=== PATIENT | male | born 1970 | race Caucasian/White ===

== ENCOUNTER 2022-05-01 13:42 | Emergency (ER) | payer OTHER, SELFPAY ==
--- NOTE | ~2022-05-01 | XR_ITS ---
EXAMINATION: XR SHOULDER, LEFT CLINICAL INFORMATION: Reduction COMPARISON: Left shoulder performed earlier at 1:53 PM TECHNIQUE: AP external rotation, Grashey, scapular Y, and axillary views of the left shoulder. FINDINGS: There are 2 images obtained of left shoulder. The first image postreduction shows no reduction of the shoulder dislocation. The second image shows reduction of anterior dislocation of the left shoulder with a nondisplaced fracture along the greater tuberosity. There is minimal soft tissue swelling is seen. The AC joint is normal. XR/XR shoulder LT min 2V IMPRESSION: The second image is post reduction with normal glenohumeral alignment. There is a small fracture along the greater tuberosity. Minimal soft tissue swelling is seen.
--- NOTE | ~2022-05-01 | XR_ITS ---
EXAMINATION: XR SHOULDER, LEFT CLINICAL INFORMATION: Fall COMPARISON: None TECHNIQUE: 2 views of the left shoulder. FINDINGS: There is anterior inferior dislocation of the humeral head with respect to the glenoid. No fracture is seen. The acromioclavicular joint is normal. Soft tissues are normal XR/XR shoulder LT min 2V IMPRESSION: Left shoulder dislocation.
[2022-05-01 13:45] VITALS: BP 164/106; PULSE 95; RESP 19; TEMP 36.6; O2SAT 98; BMI 33.0
--- NOTE | 2022-05-01 13:55 | ED.EXTPRO ---
HPI - Extremity Problem General Chief complaint: Extremity Injury, Upper Stated complaint: shoulder dislocated Time Seen by Provider: 05/01/22 13:55 Source: patient and family () Mode of arrival: ambulatory Limitations: no limitations History of Present Illness HPI Narrative: Patient is a 51 year old male presenting to the emergency department today with left shoulder pain after a fall. Patient states that he fell off of an 8 foot ladder and landed with his left shoulder upwards and he believes it is dislocated. Patient denies hitting his head with the incident. Patient denies any loss of consciousness from the incident. Patient denies any dizziness, lightheadedness, abdominal pain, nausea, vomiting, fever, chills, blurry vision, double vision, loss of vision, chest pain, difficulty breathing, shortness of breath, back pain, night sweats, pain with urination, increased urinary frequency, increased urinary urgency, blood in his urine or stool, syncope or a near syncopal episode, bowel incontinence, bladder incontinence, bowel retention, bladder retention, or any other complaints at this time. MD Complaint: extremity pain Onset (ago): minute(s) Pain Consistency: constant Location: left and upper extremity Severity scale (1-10): 4 Quality: aching and dull Radiation: none Relieving factors: nothing Exacerbating factors: range of motion Associated symptoms: denies other symptoms Related Data Allergies Allergy/AdvReac Type Severity Reaction Status Date / Time No Known Allergies Allergy Unverified 07/08/20 17:48 Review of Systems Constitutional: Constitutional: Reports no additional constitutional complaints, Denies chills, Denies fever(s) and Denies night sweats Eyes: Eyes: Reports no additional eye complaints, Denies blurry vision, Denies change in vision, Denies diplopia, Denies eye discharge, Denies loss of vision and Denies eye pain ENT: Denies dizziness Cardiovascular: Cardiovascular: Reports no additional cardiovascular complaints, Denies chest pain, Denies lightheadedness, Denies Loss of Consciousness and Denies dyspnea Respiratory: Respiratory: Reports no additional respiratory complaints and Denies dyspnea Gastrointestinal: Gastrointestinal: Reports no additional gastrointestinal complaints, Denies abdominal pain, Denies melena, Denies hematochezia, Denies change in bowel habits and Denies change in stool character Genitourinary: Genitourinary: Reports no additional male genitourinary complaints, Denies hematuria, Denies oliguria, Denies difficulty urinating, Denies dysuria, Denies urinary frequency, Denies urinary hesitancy, Denies urinary incontinence and Denies urinary urgency Musculoskeletal: Musculoskeletal: Reports no additional musculoskeletal complaints, Denies numbness and Denies tingling Comments: left shoulder pain Neurologic: Denies dizziness, Denies loss of vision, Denies numbness and Denies tingling Psychiatric: Psychiatric: Reports no additional psychiatric complaints Endocrine: Endocrine: Reports no additional endocrine complaints Hematologic/Lymphatic: Hematologic/Lymphatic: Reports no additional hematologic/lymphatic complaints Allergic/Immunologic: Allergic/Immunologic: Reports no additional allergic/immunologic complaints FOR[facility]LY [facility] Past Medical History Attestation statement: The following information was validated with the patient. Source: old records reviewed Social History Social History Advance Directives: No Advance Directives Information Provided: No Physical Exam Vital Signs: Vital Signs: Last Vital Signs Temp 98 F 05/01/22 13:45 Pulse 81 05/01/22 16:31 Resp 10 L 05/01/22 16:31 BP 143/92 H 05/01/22 16:31 Pulse Ox 97 05/01/22 16:31 O2 Del Method 05/01/22 16:31 O2 Flow Rate 2 05/01/22 16:31 BMI result Body Mass Index 33.0 Const: General: cooperative, no acute distress, alert and awake Nutritional Appearance: well nourished Orientation/consciousness: patient oriented x3 Limitations: no limitations HEENT: Head: Yes normal to inspection and Yes atraumatic Ears: hearing grossly normal bilaterally and external ears normal General nose exam: Normal external nose present, no nasal discharge noted and no epistaxis Face and sinus: Yes normal facial exam, No abrasion and No laceration Mouth: Normal oral and palatal mucosa present, no drooling and no muffled voice Eyes: General: appearance normal, both eyes and all related structures Periorbital: periorbital findings normal Eyelids: Yes eyelids normal Conjunctivae: conjunctivae normal Pupils: Equal, round and reactive pupils present EOM: EOMs intact bilaterally Neck: Neck: Yes normal visual inspection, Yes full ROM and Yes no lymphadenopathy Chest: Chest palpation & inspection: normal inspection of the chest Resp: Effort & Inspection: normal respiratory effort and able to speak in complete sentences Auscultation: clear to auscultation bilaterally Cardio: Rate: regular rate Rhythm: regular rhythm GI: Inspection: Yes normal to inspection Neuro: General: patient oriented x3 and moves all extremities Cranial nerves: Yes Equal, round and reactive pupils present Cognition (Neuro): normal cognition Motor exam (neuro): 5/5 motor strength present throughout Sensory Exam: Normal double simultaneous stimulation for sensation Coordination: [id number] test normal Extrem: Other: left shoulder pain, limited ROM secondary to pain General: Yes normal to inspection and Yes capillary refill normal Psych: Appearance: grossly normal Mental Status: mental status grossly normal Affect: normal affect Attitude: cooperative Thought process: Normal thought process present Thought content: Normal thought content present Insight: Good insight present (Psych) MDM - Extremity (Nontraumatic) MDM Narrative Medical decision making narrative: Patient is a 51 year old male presenting to the emergency department today with left shoulder pain. Patient's physical exam showed a dislocated left shoulder. Patient's left shoulder x-ray showed an acute anterior dislocation. I explained my physical exam findings as well as all test results to the patient and the patient's . I answered all questions asked by the patient and the patient's . Patient's left shoulder dislocation was reduced, per procedure note, with Dr. Plunkett assistance, without incident. Patient's ROM, circulation, strength, and sensation were present and in tact prior to and after reduction. Patient's left shoulder x-ray repeated after reduction showed a resolution of dislocation but did show a small fracture of the humerus. I stressed the importance of the patient taking his medication as prescribed. I stressed the importance of the patient following up with his primary care provider and an orthopedic provider. I stressed the importance of the patient returning to the emergency department immediately if his symptoms were to worsen or if he were to develop any dizziness, shortness of breath, difficulty breathing, chest pain, blurry vision, loss of vision, nausea, vomiting, abdominal pain, fever, chills, back pain, or any other complaints. Patient and the patient's verbalized agreement and understanding with this treatment plan and discharge. Medical Records Attestation: I reviewed the patient's medical records. Imaging Data Left shoulder x-ray: Attestation: I personally reviewed and interpreted this imaging study as follows: My impression: Dislocation Radiologist's impression: EXAMINATION: XR SHOULDER, LEFT CLINICAL INFORMATION: Fall? COMPARISON: None? TECHNIQUE: 2 views of the left shoulder. FINDINGS: There is anterior inferior dislocation of the humeral head with respect to the glenoid. No fracture is seen. The acromioclavicular joint is normal. Soft tissues are normal? XR/XR shoulder LT min 2V IMPRESSION: Left shoulder dislocation. Dictated By: Valencia Metzger MD Signed By: Electronically signed by Valencia Metzger MD 05/01/22 1445 Post-reduction left shoulder x-ray: Attestation: I personally reviewed and interpreted this imaging study as follows: My impression: Dislocation resolved. Small fracture. Radiologist's impression: EXAMINATION: XR SHOULDER, LEFT CLINICAL INFORMATION: Reduction? COMPARISON: Left shoulder performed earlier at 1:53 PM? TECHNIQUE: AP external rotation, Grashey, scapular Y, and axillary views of the left shoulder. FINDINGS: There are 2 images obtained of left shoulder. The first image postreduction shows no reduction of the shoulder dislocation. The second image shows reduction of anterior dislocation of the left shoulder with a nondisplaced fracture along the greater tuberosity. There is minimal soft tissue swelling is seen. The AC joint is normal. XR/XR shoulder LT min 2V IMPRESSION: The second image is post reduction with normal glenohumeral alignment. There is a small fracture along the greater tuberosity. Minimal soft tissue swelling is seen. Dictated By: Hank Marie MD Signed By: Electronically signed by Hank Marie MD 05/01/22 1517 Procedures Orthopedic Joint Reduction Joint #1: Time Out Performed: Yes Side: left Joint Reduction Location: shoulder Analgesia: procedural sedation and hematoma block Local Anesthesia: lidocaine 2% Amount of anesthesic used (mL): 15 Shoulder Technique Used (if applicable): traction/counter-traction, external rotation and Michael Technique used: traction/counter-traction Post-reduction neuro exam: intact and no change Post-reduction vascular: intact and no change Post Reduction X-Ray Obtained: Yes Post Reduction X-Ray Results: reduced Splint Applied: Yes Patient Tolerated Procedure: well Orthopedic Splinting/Casting Injury #1: Side: left Upper Extremity Injury Location: shoulder Upper Extremity Immobilizer: sling/shoulder immobilizer Critical Care Time Critical Care Time Critical Care Time: Yes Total Critical Care Time: 30 Attestation: I spent 30 minutes of Critical Care Time with this patient. This does not include time spent on separately reported billable procedures. Discharge Plan Discharge Clinical Impression: Fracture, humerus, Dislocation closed, shoulder Patient Disposition: Home, Self-Care Instructions: How to Use a Sling (ED) Additional Instructions: Follow up with your primary care provider and orthopedic. Return to the emergency department immediately if your symptoms worsen or if you develop any dizziness, shortness of breath, difficulty breathing, chest pain, blurry vision, loss of vision, nausea, vomiting, abdominal pain, fever, chills, back pain, or any other complaints. Referrals: [facility] [Provider Group] (Call to establish and follow up with a primary care provider. If you already have a primary care provider, please call and follow up with them. ) [facility] Primary [facility], [place] [Provider Group] (Call to establish and follow up with a primary care provider. If you already have a primary care provider, please call and follow up with them. ) [facility] Primary Care,[place] [Provider Group] (Call to establish and follow up with a primary care provider. If you already have a primary care provider, please call and follow up with them. ) [facility] [Provider Group] (Call to establish and follow up with an orthopedic provider. ) Stand Alone Forms: Work/School Release Print Language: Chilean
[2022-05-01] MEDS: Morphine Sulfate 4 MG/ML CARTRIDGE IM (14:05)
[2022-05-01] MEDS: Ondansetron ODT 4 MG TAB.RAPDIS TRANSLINGU (14:31)
[2022-05-01] MEDS: fentaNYL citrate/PF 100 MCG/2 ML VIAL 50 MCG IVPUSH (14:39)
[2022-05-01] MEDS: Lidocaine HCl 2 % MPF 5 ML VIAL 10 ML INFILTRATI (14:42)
[2022-05-01] MEDS: Lidocaine HCl 2 % MPF 5 ML VIAL SUBCUT (14:42)
[2022-05-01] MEDS: Ketamine HCl/NS 50 MG/5 ML SYRINGE 208 MG IVPUSH (14:52)
[2022-05-01 14:55] VITALS: BP 145/94; PULSE 85; RESP 16; O2SAT 99
[2022-05-01 16:31] VITALS: BP 143/92; PULSE 81; RESP 10; O2SAT 97
--- NOTE | 2022-05-01 16:32 | PC.NURSE ---
pt drowsy, but oriented x3, vss, pt denies any pain at this time. discharge pending pt arousal.
== END 2022-05-01 17:35 | disposition home or self-care (01) ==
PROVIDERS: Emergency Provider Student in an Organized Health Care Education/Training Program
DX: S42.302A Unspecified fracture of shaft of humerus, left arm, initial encounter for closed fracture (principal); M25.512 Pain in left shoulder; W11.XXXA Fall on and from ladder, initial encounter; Y93.9 Activity, unspecified; Y92.9 Unspecified place or not applicable; Y99.9 Unspecified external cause status
CPT/HCPCS: 24505; 29105; 73030; 96372; 96374; 99152; 99284; 99285; J2270; J3010

== ENCOUNTER 2022-07-17 15:48 | Outpatient (REF) | payer OTHER, SELFPAY ==
--- NOTE | ~2022-07-17 | MR_ITS ---
EXAMINATION: MR SHOULDER WITHOUT CONTRAST, LEFT CLINICAL INFORMATION: Left shoulder pain. COMPARISON: X-rays of the left shoulder April 2022. TECHNIQUE: MRI of the left shoulder was performed on a high-field 1.5 Darlene MRI scanner. Sequences are modified in an attempt to decrease motion artifact. FINDINGS: There is [id number] motion artifact degrading image quality limiting the exam. ROTATOR CUFF: There is heterogeneous increased signal throughout the infraspinatus and supraspinatus tendons. Findings compatible with a combination of tendinosis and scattered areas of partial tearing but without a clearly measurable defect or tendon retraction. Muscle normal. Teres minor: Normal. Subscapularis: Normal. BICEPS TENDON: Normal. 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 The undersurface of the acromion is flat. No subacromial spur. BURSA: Trace fluid compatible with minimal bursitis. LABRUM/CAPSULE: Mild heterogeneity of the anterior inferiorly labral ligamentous complex compatible with degenerative change or minimal nondisplaced degenerative tearing. GLENOHUMERAL JOINT: There is abnormal signal and morphology along the posterior lateral head tuberosity junction compatible with an impaction fracture. There may be several small nondisplaced or minimally displaced fracture fragments adjacent to the area of slight concavity along this portion of the humerus. Area measured approximately 2.3 x 1.1 x 0.5 cm. There is surrounding marrow edema. There is some minimal cartilage heterogeneity in the glenoid and a small marginal osteophyte along the inferior aspect of the humeral head. Findings indicative of mild arthrosis. There is a mild joint effusion and synovitis. MR/MR shoulder LT wo con IMPRESSION: Imaging findings consistent with prior left anterior shoulder dislocation. There is an impaction fracture with one or possibly several small minimally displaced fragments along the posterior superior lateral aspect of the head tuberosity junction. There is persistent surrounding marrow edema suggesting incomplete fracture healing versus recurrent impaction injury. Minimal abnormality of the anterior inferior labral ligamentous complex compatible with degenerative change or minimal nondisplaced tearing. Mild arthrosis of the glenohumeral joint. Abnormality of the supraspinatus and infraspinatus tendons most compatible with tendinosis and scattered areas of partial tearing but no measurable defect or tendon retraction. Mild arthrosis of the acromioclavicular joint.
== END 2022-07-17 15:49 | disposition home or self-care (01) ==
LOC: HO.MRI 15:48
PROVIDERS: Visit Provider Physician Assistant
DX: S46.002A Unspecified injury of muscle(s) and tendon(s) of the rotator cuff of left shoulder, initial encounter (principal)
CPT/HCPCS: 73221

== ENCOUNTER 2022-09-20 08:00 | Outpatient (RCR) | payer OTHER, SELFPAY ==
[2022-05-16 08:55] VITALS: BP 170/89; PULSE 75; O2SAT 98
--- NOTE | 2022-05-16 13:33 | MHC.PT.EP ---
[facility] [place] Office [place] Office [place] Office [address] [place] [address] [phone] F: [phone] F: [phone] F: [phone] F: [phone] Physical Therapy Plan of Care Date of Evaluation: Date of Surgery: Diagnosis: LEFT ANTERIOR SHOULDER DISLOCATION, (+) GH AVULSION FX Assessment: 51 YO MALE REF TO PT W TRAUMATIC LEFT ANT SHOULDER DISLOCATION SUSTAINED IN A FALL FROM A LADDER ON 05/01/22- HE WAS RELOCATED THAT DAY IN THE ER, ? GREATER TUBEROSITY AVULSION FX. HE HAS BEEN IN A SLING UNTIL ORTHO F/U ON 05/15/22. 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 OBJECTIVE FINDINGS: DECR POSTURAL AWARENESS, ROM DEFICITS, SCAP MM WEAKNESS/ Lt SH WEAKNESS, (+) TISSUE TENSION/ UT COMPENSATION, AND INTERMITTENT PAIN. FUNCTIONALLY, Pt IS UNABLE TO PERFORM REG ADLs W Lt UE- DIFFIC SLEEPING- COMPENSATES W INCR USE OF Rt UE. Pt WOULD BENEFIT FROM PT TO ADDRESS THE ABOVE FINDINGS, GUIDE Pt IN INCR FUNCTIONAL INDEP,PAIN MGMT, AND DEV A HEP/ SELF-SX MGMT PROGRAM. Frequency and Duration: The patient will be seen 2 x WK x 10 WKS Short Term Goals: *Pt'S LEFT SH PAIN DECR TO 2-3/10 W REG ADLs IN 2 WKS *Pt DEMON WFL AROM Lt SH IN 3 WKS *Pt INDEP SELF CORRECT POSTURE AND REDUCE UT COMPENSATION IN 3 WKS *INCREASE PROPRIOCEPTIVE FB Lt SH IN 3 WKS Jail Goals: Pt INDEP W HEP PROGRESSION AND SELF-SX MGMT STRATEGIES IN 8 WKS Pt RESUME REG ADLs EVIDENT W IMPROVED SPADI SCORE BY 8-10 POINTS (AT EVAL 21/130 ) IN 10 WKS Pt INCR LE STRENGTH BY 1 GRADE IN 10 WKS Treatment Plan: Modalities to reduce pain, spasms and effusion. Manual therapy to restore motion and function. Therapeutic exercise to improve strength and flexibility. Neuromuscular re-education for posture and balance. Therapeutic activities to return to functional activities of daily living. Electronically signed by: Carla LevinePT Please sign and return to therapist. Thank you for your referral.
--- NOTE | 2022-11-02 14:32 | MHC.PT.DC ---
[facility] [place] Office [place] Office [place] Office [address] [place] [address] [phone] F: [phone] F: [phone] F: [phone] F: [phone] Physical Therapy Discharge Report Diagnosis: LEFT ANTERIOR SHOULDER DISLOCATION, (+) GH AVULSION FX Date of Surgery: Date of Evaluation: 05/16/22 Date of Discharge: 11/02/22 Treatments to Date: 27 Cancellations to Date: 8 No Shows to Date: 4 Discharge Status: Achieved Goals Improved Function Independent with HEP Patient Elected to Stop Discharge Summary: AT LAST ATTENDED PT APPT, SEJAL STATED HIS LEFT SHOULDER IS FEELING MUCH BETTER-> HE DENIED ANY SORENESS OR PAIN. HE HAS A THOROUGH HEP ADDRESSING SHOULDER AND SCAP STRENGTHENING AND PLYOMETRIC EXERCISE. HE DEMON IMPROVED POSTURAL / GASTROENTEROLOGY NURSE AWARENESS AND STATED HE HAS BEEN ABLE TO GRADUALLY RESUME HIS REGULAR ADLs/ HOBBIES WITHOUT ADVERSE RESPONSE. Electronically signed by: BELEN CAMARENA,PT Please sign and return to therapist. Thank you for your referral.
== END 2022-11-02 14:32 | disposition home or self-care (01) ==
LOC: HO.PT 08:00
PROVIDERS: PCP Hospitalist; Visit Provider Physician Assistant
DX: S43.005D Unspecified dislocation of left shoulder joint, subsequent encounter (principal)
CPT/HCPCS: 97014; 97033; 97110; 97140; 97162